=== PATIENT | male | born 1990 | race Caucasian/White ===

== ENCOUNTER 2017-01-02 21:20 | Emergency (ER) | payer OTHER ==
--- NOTE | 2017-01-03 08:57 | ED CLINICAL REPORT ---
Clinical Report - Physicians/Mid Levels [facility] [address] [place] [address] 01/02/2017 21:22 Patient: SAHRYN CAO Time Seen: 22:34. Arrived- By private vehicle. Historian- patient. History limited by intoxication. Physical Exam limited by intoxication. HISTORY OF PRESENT ILLNESS Chief Complaint: DEPRESSED and SUICIDAL THOUGHTS. This started today. The patient has experienced situational problems (his mother wants him to move out). Recent heavy alcohol consumption. Last drink was just prior to arrival. He is under influence in ED. Has been depressed. Has had suicidal thoughts (he tells nursing staff that he tried to hang himself today). The symptoms are described as severe. An injury is present. Location- (L ear). Similar symptoms previously: Diagnosis: depression, self injury and suicide attempt. ( he says that he is homosexual and when he "came out" he was very depressed and suicidal). REVIEW OF SYSTEMS No chills, fever, sweats, calf pain or chest pain. No cough, difficulty breathing, pedal edema, palpitations or abdominal pain. No constipation, diarrhea, nausea, vomiting or urinary problems. All systems otherwise negative, except as recorded above. SOCIAL HISTORY Regular alcohol use. History of drug use he told nursing staff that he wanted to go out and get some meth to kill himself with. FAMILY HISTORY Denies family medical history. ADDITIONAL NOTES The nursing notes have been reviewed. PHYSICAL EXAM Vital Signs: 01/02/2017 21:42 BP: 144/110. HR: 112. RR: 16. O2 saturation: 99%. Temp: 99 F. Pain level now: 710. Have been reviewed. Appearance: The patient appears intoxicated and has ETOH on breath. ENT: Left ear: deep 1.0 cm through and through laceration involving the cartilage of the posterior and peripheral aspect of the left ear. SEE LACERATION PROCEDURE NOTE #1. Neck: Normal inspection. Neck supple. CVS: Normal heart rate and rhythm. Heart sounds normal. Respiratory: Breath sounds normal. Abdomen: Soft and nontender. Back: No tenderness. Skin: Skin warm and dry. Signs of self-injury to the right forearm (scars). Extremities: Extremities exhibit normal ROM. No lower extremity edema. Psych / Neuro: The patient expresses suicidal thoughts and a specific plan. Patient does not express homicidal thoughts. Insight and judgement normal. Cranial nerves normal (as tested). No cerebellar findings. No motor deficit. No sensory deficit. LABS, X-RAYS, AND EKG Laboratory Tests: UA-Culture if indicated: (MARYCRUZ: 01/02/2017 23:10) ( [facility] 01/02/2017 23:33) Final results Test Result Flag Units (Reference) URINE COLOR YELLOW URINE APPEARANCE CLEAR URINE GLUCOSE NEGATIVE (NEGATIVE) URINE BILIRUBIN NEGATIVE (NEGATIVE) URINE KETONE NEGATIVE (NEGATIVE) URINE SPECIFIC GRAVITY 1.010 (1.010-1.030) URINE PH 7.5 (5.0-8.0) URINE PROTEIN NEGATIVE (NEGATIVE) URINE UROBILINOGEN 0.2 EU/dL (0.2-1.0) URINE NITRITE NEGATIVE (NEGATIVE) URINE BLOOD NEGATIVE (NEGATIVE) URINE LEUK ESTERASE NEGATIVE (NEGATIVE) URINE RBC 0-1 rbc/hpf (0-1) URINE WBC 0-1 wbc/hpf (0-1) URINE EPITHELIAL CELLS 0-1 EPI/hpf (0-5) URINE BACTERIA NONE SEEN (NONE SEEN) URINE COMMENT CULT NOT INDICATED URINE CULTURES ARE SET-UP BASED ON THE FOLLOWING CRITERIA:POSITIVE NITRITEPOSITIVE LEUKOCYTE ESTERASEGREATER THAN 10 WHITE BLOOD CELLSMODERATE (2+) OR GREATER BACTERIA CBC w Diff: (MARYCRUZ: 01/02/2017 22:15) ( [facility] 01/02/2017 22:25) Final results Test Result Flag Units (Reference) WHITE BLOOD COUNT 10.1 K/uL (4.5-11.5) RED BLOOD COUNT 5.20 M/uL (4.50-5.90) HEMOGLOBIN 15.0 gm/dL (13.5-17.5) HEMATOCRIT 45.0 % (41.0-53.0) MEAN CELL VOLUME 87 fL (80-100) MEAN CORPUSCULAR HGB 29 pg (26-34) MEAN CORPUSCULAR HGB CONC 33 g/dL (31-37) RED CELL DISTRIBUTION WIDTH 14.0 % (11.6-14.8) PLATELET COUNT 244 K/uL (150-400) NEUTROPHIL % 61.0 % (50-75) LYMPH % 34.2 % (25-40) MONO % 3.9 % (3-14) EOSINOPHIL % 0.3 % (0-4) BASOPHIL % 0.6 % (0-2) Urine Drug Screen: (MARYCRUZ: 01/02/2017 23:10) ( [facility] 01/02/2017 23:41) Final results Test Result Flag Units (Reference) AMPHETAMINE/METHAMPHETAMINE NEGATIVE (NEGATIVE) BARBITURATE NEGATIVE (NEGATIVE) BENZODIAZEPINE NEGATIVE (NEGATIVE) CANNABINOID NEGATIVE (NEGATIVE) COCAINE NEGATIVE (NEGATIVE) ECSTASY NEGATIVE (NEGATIVE) METHADONE NEGATIVE (NEGATIVE) OPIATE NEGATIVE (NEGATIVE) The urine drug screen is a qualitative screening test fordrug overdose and abuse. All screen results should beconsidered as presumptive.Drugs screened for are as follows:BenzodiazepinesCocaineAmphetamines/MetamphetaminesTHC (Tetrahydrocannabinol)OpiatesBarbituratesEcstasyMethadonePositive results are unconfirmed. For confirmation, notifythe lab for the specimen to be sent to the reference lab.All confirmations must be performed by a differentmethodology.The ingestion of natural herbal and plant productscontaining Ephedra/Ephedra metabolites can produce in urineone or more substances capable of cross reacting withamphetamine/methamphetamine immunoassays. These testsprovide a preliminary result only. A more specificalternative chemical method must be used to obtain aconfirmed analytical result. Salicylate Level: (MARYCRUZ: 01/02/2017 22:15) ( [facility] 01/02/2017 22:37) Final results Test Result Flag Units (Reference) SALICYLATE <2.8 L mg/dL (2.8-20) CMP: (MARYCRUZ: 01/02/2017 22:15) ( [facility] 01/02/2017 22:45) Final results Test Result Flag Units (Reference) GLUCOSE 104 mg/dL (70-110) BUN 10 mg/dL (7-18) CREATININE 0.8 mg/dL (0.6-1.3) Estimated GFR >60 mL/min Estimated GFR- >60 mL/min Note: Persistent reduction over 3 months in eGFR<60 mL/min/1.73 m2 defines CKD. Patients with eGFR values>=60 mL/min/1.73 m2 may also have CKD if evidence ofpersistent proteinuria. Additional information may be foundat www.kidney.org. SODIUM 147 H mmol/L (136-145) POTASSIUM 4.0 mmol/L (3.5-5.1) CHLORIDE 109 H mmol/L (98-107) CARBON DIOXIDE 28 mmol/L (21-32) CALCIUM 8.7 mg/dL (8.5-10.1) TOTAL PROTEIN 8.0 g/dL (6.4-8.2) ALBUMIN 4.3 g/dL (3.3-5.0) BILIRUBIN, TOTAL 0.2 mg/dL (0.0-1.0) ALKALINE PHOSPHATASE 74 U/L (46-116) AST (SGOT) 19 U/L (15-37) ALT (SGPT) 26 U/L (12-78) ACETAMINOPHEN < 3 L ug/mL (10-30) ETHYL ALCOHOL 315 H mg/dL (3-10) . PROGRESS AND PROCEDURES Suicide Risk Assessment: The patient's suicide risk factors are as follows: male and recent alcohol abuse. The patient has a diagnosis of substance abuse. Clinical suicide risk assessment: moderate risk. Laceration Repair: Location: left ear. Time-out completed immediately before the procedure. Length: 1 cm. Complexity: complex (requiring alignment of multiple flaps). Wound depth/shape- linear. Distal neuro/vascular/tendon status normal. Local anesthesia provided using 2% lidocaine no epi. Prepped with Betadine. Wound explored, cleansed and examined to the base in bloodless field. Closure of superficial layer: interrupted 5-0 Prolene (6 sutures). Post-procedure: he is stable and there are no complications. Bleeding is controlled. Dressing applied. Tetanus immunization given. Course of Care: Patient is stable. The patient's symptoms are now gone. Vital signs have been reviewed. Physical exam findings are improved. Alert. Oriented X3. No acute distress. Breath sounds normal. No respiratory distress. Normal heart rate and rhythm. Heart sounds normal. Abdomen soft and nontender. Skin warm and dry. ( Had an extended discussion with the patient in the morning when he was sober. Etiologies that he has had problems with alcohol and has been in both inpatient and outpatient alcohol programs including Alcoholics Anonymous. He remembers taking a bus into town and buying a bottle of vodka but he does not recall what happened after that. He says that he is not suicidal he has a good job and wishes to go home.). Patient/family counseled. Old medical records reviewed. Disposition: Discharged. Condition: stable. CLINICAL IMPRESSION Depression. Single deep laceration to the left ear. Alcohol intoxication with alcohol dependence. INSTRUCTIONS Stay with responsible adult family member (or other responsible adult). No alcohol. Seek medical help to quit drinking. (Return to Alcoholics Anonymous for further support and help as discussed.). Warnings: Further evaluation is necessary. GENERAL WARNINGS: Return or contact your physician immediately if your condition worsens or changes unexpectedly, if not improving as expected, or if other problems arise. Prescription Medications: Augmentin 875 mg: take 1 tablet orally every 12 hours for 7 days. Dispense fourteen (14). No refills. Substitution is permissible. Understanding of the discharge instructions verbalized by patient. Follow-up with: [facility], , , [address], , [place], [id number] Follow up in seven days for suture removal. Call for an appointment. Follow-up with: [facility] Valve Machine Operator, , , , , Follow up today. Call for the next available appointment. (Electronically signed by Chuy Gupta MD 01/03/2017 9:28)
--- NOTE | 2017-01-03 08:57 | ED ORDER SUMMARY ---
..... Patient: SHARYN CAO OrderSheet [facility] VisitID: [id number] [address] [place] [address] 26y, M Registration Date/Time: 01/02/2017 ORDER SHEET Weight: 68.0 kg Allergies: Demerol GENERAL ORDERS: CBC w Diff Urgent (22:00 01/02/2017 TBowen R.N. per protocol) (Ack 22:17 SRedmond) (0:10 SRedmond) CMP Urgent (22:00 01/02/2017 TBowen R.N. per protocol) (Ack 22:17 SRedmond) (0:10 SRedmond) UA-Culture if indicated Urgent (:00 01/02/2017 TBowen R.N. per protocol) (Ack 22:17 SRedmond) (23:15 TBowen R.N.) Acetaminophen Level Urgent (:00 01/02/2017 TBowen R.N. per protocol) (Ack 22:17 SRedmond) (0:10 SRedmond) Urine Drug Screen Urgent (22:00 01/02/2017 TBowen R.N. per protocol) (Ack 22:17 SRedmond) (23:15 TBowen R.N.) Ethyl Alcohol Urgent (22:00 01/02/2017 TBowen R.N. per protocol) (Ack 22:17 SRedmond) (0:10 SRedmond) Salicylate Level Urgent (22:00 01/02/2017 TBowen R.N. 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 (13:32 01/03/2017)] [Electronically locked/signed by Aicha Gilbert R.N. (13:32 01/03/2017)]
--- NOTE | 2017-01-03 08:57 | ED ORDER SUMMARY ---
..... Patient: SHARYN CAO OrderSheet [facility] VisitID: [id number] [address] [place] [address] 26y, M Registration Date/Time: 01/02/2017 ORDER SHEET Weight: 68.0 kg Allergies: Demerol GENERAL ORDERS: CBC w Diff Urgent (22:00 01/02/2017 TBowen R.N. per protocol) (Ack 22:17 SRedmond) (0:10 SRedmond) CMP Urgent (22:00 01/02/2017 TBowen R.N. per protocol) (Ack 22:17 SRedmond) (0:10 SRedmond) UA-Culture if indicated Urgent (:00 01/02/2017 TBowen R.N. per protocol) (Ack 22:17 SRedmond) (23:15 TBowen R.N.) Acetaminophen Level Urgent (:00 01/02/2017 TBowen R.N. per protocol) (Ack 22:17 SRedmond) (0:10 SRedmond) Urine Drug Screen Urgent (22:00 01/02/2017 TBowen R.N. per protocol) (Ack 22:17 SRedmond) (23:15 TBowen R.N.) Ethyl Alcohol Urgent (22:00 01/02/2017 TBowen R.N. per protocol) (Ack 22:17 SRedmond) (0:10 SRedmond) Salicylate Level Urgent (22:00 01/02/2017 TBowen R.N. 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 (13:32 01/03/2017)] [Electronically locked/signed by Aicha Gilbert R.N. (13:32 01/03/2017)]
--- NOTE | 2017-01-03 08:57 | ED CLINICAL REPORT ---
Clinical Report - Physicians/Mid Levels [facility] [address] [place] [address] 01/02/2017 21:22 Patient: SHARYN CAO Time Seen: 22:34. Arrived- By private vehicle. Historian- patient. History limited by intoxication. Physical Exam limited by intoxication. HISTORY OF PRESENT ILLNESS Chief Complaint: DEPRESSED and SUICIDAL THOUGHTS. This started today. The patient has experienced situational problems (his mother wants him to move out). Recent heavy alcohol consumption. Last drink was just prior to arrival. He is under influence in ED. Has been depressed. Has had suicidal thoughts (he tells nursing staff that he tried to hang himself today). The symptoms are described as severe. An injury is present. Location- (L ear). Similar symptoms previously: Diagnosis: depression, self injury and suicide attempt. ( he says that he is homosexual and when he "came out" he was very depressed and suicidal). REVIEW OF SYSTEMS No chills, fever, sweats, calf pain or chest pain. No cough, difficulty breathing, pedal edema, palpitations or abdominal pain. No constipation, diarrhea, nausea, vomiting or urinary problems. All systems otherwise negative, except as recorded above. SOCIAL HISTORY Regular alcohol use. History of drug use he told nursing staff that he wanted to go out and get some meth to kill himself with. FAMILY HISTORY Denies family medical history. ADDITIONAL NOTES The nursing notes have been reviewed. PHYSICAL EXAM Vital Signs: 01/02/2017 21:42 BP: 144/110. HR: 112. RR: 16. O2 saturation: 99%. Temp: 99 F. Pain level now: 710. Have been reviewed. Appearance: The patient appears intoxicated and has ETOH on breath. ENT: Left ear: deep 1.0 cm through and through laceration involving the cartilage of the posterior and peripheral aspect of the left ear. SEE LACERATION PROCEDURE NOTE #1. Neck: Normal inspection. Neck supple. CVS: Normal heart rate and rhythm. Heart sounds normal. Respiratory: Breath sounds normal. Abdomen: Soft and nontender. Back: No tenderness. Skin: Skin warm and dry. Signs of self-injury to the right forearm (scars). Extremities: Extremities exhibit normal ROM. No lower extremity edema. Psych / Neuro: The patient expresses suicidal thoughts and a specific plan. Patient does not express homicidal thoughts. Insight and judgement normal. Cranial nerves normal (as tested). No cerebellar findings. No motor deficit. No sensory deficit. LABS, X-RAYS, AND EKG Laboratory Tests: UA-Culture if indicated: (MARYCRUZ: 01/02/2017 23:10) ( [facility] 01/02/2017 23:33) Final results Test Result Flag Units (Reference) URINE COLOR YELLOW URINE APPEARANCE CLEAR URINE GLUCOSE NEGATIVE (NEGATIVE) URINE BILIRUBIN NEGATIVE (NEGATIVE) URINE KETONE NEGATIVE (NEGATIVE) URINE SPECIFIC GRAVITY 1.010 (1.010-1.030) URINE PH 7.5 (5.0-8.0) URINE PROTEIN NEGATIVE (NEGATIVE) URINE UROBILINOGEN 0.2 EU/dL (0.2-1.0) URINE NITRITE NEGATIVE (NEGATIVE) URINE BLOOD NEGATIVE (NEGATIVE) URINE LEUK ESTERASE NEGATIVE (NEGATIVE) URINE RBC 0-1 rbc/hpf (0-1) URINE WBC 0-1 wbc/hpf (0-1) URINE EPITHELIAL CELLS 0-1 EPI/hpf (0-5) URINE BACTERIA NONE SEEN (NONE SEEN) URINE COMMENT CULT NOT INDICATED URINE CULTURES ARE SET-UP BASED ON THE FOLLOWING CRITERIA:POSITIVE NITRITEPOSITIVE LEUKOCYTE ESTERASEGREATER THAN 10 WHITE BLOOD CELLSMODERATE (2+) OR GREATER BACTERIA CBC w Diff: (MARYCRUZ: 01/02/2017 22:15) ( [facility] 01/02/2017 22:25) Final results Test Result Flag Units (Reference) WHITE BLOOD COUNT 10.1 K/uL (4.5-11.5) RED BLOOD COUNT 5.20 M/uL (4.50-5.90) HEMOGLOBIN 15.0 gm/dL (13.5-17.5) HEMATOCRIT 45.0 % (41.0-53.0) MEAN CELL VOLUME 87 fL (80-100) MEAN CORPUSCULAR HGB 29 pg (26-34) MEAN CORPUSCULAR HGB CONC 33 g/dL (31-37) RED CELL DISTRIBUTION WIDTH 14.0 % (11.6-14.8) PLATELET COUNT 244 K/uL (150-400) NEUTROPHIL % 61.0 % (50-75) LYMPH % 34.2 % (25-40) MONO % 3.9 % (3-14) EOSINOPHIL % 0.3 % (0-4) BASOPHIL % 0.6 % (0-2) Urine Drug Screen: (MARYCRUZ: 01/02/2017 23:10) ( [facility] 01/02/2017 23:41) Final results Test Result Flag Units (Reference) AMPHETAMINE/METHAMPHETAMINE NEGATIVE (NEGATIVE) BARBITURATE NEGATIVE (NEGATIVE) BENZODIAZEPINE NEGATIVE (NEGATIVE) CANNABINOID NEGATIVE (NEGATIVE) COCAINE NEGATIVE (NEGATIVE) ECSTASY NEGATIVE (NEGATIVE) METHADONE NEGATIVE (NEGATIVE) OPIATE NEGATIVE (NEGATIVE) The urine drug screen is a qualitative screening test fordrug overdose and abuse. All screen results should beconsidered as presumptive.Drugs screened for are as follows:BenzodiazepinesCocaineAmphetamines/MetamphetaminesTHC (Tetrahydrocannabinol)OpiatesBarbituratesEcstasyMethadonePositive results are unconfirmed. For confirmation, notifythe lab for the specimen to be sent to the reference lab.All confirmations must be performed by a differentmethodology.The ingestion of natural herbal and plant productscontaining Ephedra/Ephedra metabolites can produce in urineone or more substances capable of cross reacting withamphetamine/methamphetamine immunoassays. These testsprovide a preliminary result only. A more specificalternative chemical method must be used to obtain aconfirmed analytical result. Salicylate Level: (MARYCRUZ: 01/02/2017 22:15) ( [facility] 01/02/2017 22:37) Final results Test Result Flag Units (Reference) SALICYLATE <2.8 L mg/dL (2.8-20) CMP: (MARYCRUZ: 01/02/2017 22:15) ( [facility] 01/02/2017 22:45) Final results Test Result Flag Units (Reference) GLUCOSE 104 mg/dL (70-110) BUN 10 mg/dL (7-18) CREATININE 0.8 mg/dL (0.6-1.3) Estimated GFR >60 mL/min Estimated GFR- >60 mL/min Note: Persistent reduction over 3 months in eGFR<60 mL/min/1.73 m2 defines CKD. Patients with eGFR values>=60 mL/min/1.73 m2 may also have CKD if evidence ofpersistent proteinuria. Additional information may be foundat www.kidney.org. SODIUM 147 H mmol/L (136-145) POTASSIUM 4.0 mmol/L (3.5-5.1) CHLORIDE 109 H mmol/L (98-107) CARBON DIOXIDE 28 mmol/L (21-32) CALCIUM 8.7 mg/dL (8.5-10.1) TOTAL PROTEIN 8.0 g/dL (6.4-8.2) ALBUMIN 4.3 g/dL (3.3-5.0) BILIRUBIN, TOTAL 0.2 mg/dL (0.0-1.0) ALKALINE PHOSPHATASE 74 U/L (46-116) AST (SGOT) 19 U/L (15-37) ALT (SGPT) 26 U/L (12-78) ACETAMINOPHEN < 3 L ug/mL (10-30) ETHYL ALCOHOL 315 H mg/dL (3-10) . PROGRESS AND PROCEDURES Suicide Risk Assessment: The patient's suicide risk factors are as follows: male and recent alcohol abuse. The patient has a diagnosis of substance abuse. Clinical suicide risk assessment: moderate risk. Laceration Repair: Location: left ear. Time-out completed immediately before the procedure. Length: 1 cm. Complexity: complex (requiring alignment of multiple flaps). Wound depth/shape- linear. Distal neuro/vascular/tendon status normal. Local anesthesia provided using 2% lidocaine no epi. Prepped with Betadine. Wound explored, cleansed and examined to the base in bloodless field. Closure of superficial layer: interrupted 5-0 Prolene (6 sutures). Post-procedure: he is stable and there are no complications. Bleeding is controlled. Dressing applied. Tetanus immunization given. Course of Care: Patient is stable. The patient's symptoms are now gone. Vital signs have been reviewed. Physical exam findings are improved. Alert. Oriented X3. No acute distress. Breath sounds normal. No respiratory distress. Normal heart rate and rhythm. Heart sounds normal. Abdomen soft and nontender. Skin warm and dry. ( Had an extended discussion with the patient in the morning when he was sober. Etiologies that he has had problems with alcohol and has been in both inpatient and outpatient alcohol programs including Alcoholics Anonymous. He remembers taking a bus into town and buying a bottle of vodka but he does not recall what happened after that. He says that he is not suicidal he has a good job and wishes to go home.). Patient/family counseled. Old medical records reviewed. Disposition: Discharged. Condition: stable. CLINICAL IMPRESSION Depression. Single deep laceration to the left ear. Alcohol intoxication with alcohol dependence. INSTRUCTIONS Stay with responsible adult family member (or other responsible adult). No alcohol. Seek medical help to quit drinking. (Return to Alcoholics Anonymous for further support and help as discussed.). Warnings: Further evaluation is necessary. GENERAL WARNINGS: Return or contact your physician immediately if your condition worsens or changes unexpectedly, if not improving as expected, or if other problems arise. Prescription Medications: Augmentin 875 mg: take 1 tablet orally every 12 hours for 7 days. Dispense fourteen (14). No refills. Substitution is permissible. Understanding of the discharge instructions verbalized by patient. Follow-up with: [facility], , , [address], , [place], [id number] Follow up in seven days for suture removal. Call for an appointment. Follow-up with: [facility] Certified Mental Health Director Of Speech Pathology, , , , , Follow up today. Call for the next available appointment. (Electronically signed by Chuy Gupta MD 01/03/2017 9:28)
--- NOTE | 2017-01-03 08:57 | ED NURSING NOTES ---
Clinical Report - Nurses [facility] [address] [place] [address] 01/02/2017 21:22 Patient: SHARYN CAO TRIAGE Triage time 21:42. Acuity: LEVEL 4. Chief Complaint: INJURY TO LEFT EAR. --21:46 Emigdio Souza 21:42 01/02/17. BP: 144/110. HR: 112. RR: 16. O2 saturation: 99%. Temp: 99 F. Pain level now: 03/24. --21:46 Emigdio Souza Weight: 68 kg. Height/Length: 70 inches. BMI: 21.5. --21:45 Emigdio Souza Medications Adderall Oral. --21:43 Emigdio Souza Abilify Oral (Tablet 5 mg) 1 tablet, daily. --21:43 Angeline Tovar R.N. TraZODone HCl Oral (Tablet 50 mg) 1 tablet, at bedtime. --00:48 Angeline Tovar R.N. BuPROPion HCl Oral (Tablet 100 mg) 2 tablets, daily. --00:49 Angeline Tovar R.N. Trazosine 1mg, daily. --00:50 Angeline Tovar R.N. ARIPiprazole Oral (Tablet 5 mg) 1 tablet, daily. --00:55 Angeline Tovar R.N. The following entry was struck and corrected by Angeline Tovar R.N., 00:52 (01/03/17) Reason for correction - other(correction). <<STRICKEN ENTRY-- Abilify Oral. --21:43 Emigdio Souza --END STRIKE>>. Allergies Demerol. --21:43 Emigdio Souza History Arrived by private vehicle. Historian: patient. Accompanied by family. This occurred just prior to arrival. He sustained a laceration. ( pt fell in his room and unsure what he hit). 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 PAST MEDICAL HX: Tetanus status: up-to-date. Immunizations: up-to-date. SOCIAL HX: Smoker- current status unknown. Regular alcohol use. No drug use. No infectious disease exposure. SELF HARM ASSESSMENT: A self harm assessment was performed. The patient answered "no" to the question "Have you recently felt down, depressed, or hopeless?", "Have you noticed less interest or pleasure in doing things?", "Do you have thoughts of harming or killing yourself?", "Are you here because you tried to hurt yourself?", "Have you ever tried to hurt yourself before today?", "Have you recently had thoughts about harming or killing others?" and "Do you have any dangerous items in your possession?". FALL RISK ASSESSMENT: Fall risk assessment completed. No fall risk identified. NUTRITIONAL RISK ASSESSMENT: The nutritional risk assessment revealed no deficiencies. FUNCTIONAL ASSESSMENT: Functional assessment: no impairments noted. LEARNING NEEDS ASSESSMENT: The learning needs assessment revealed no barriers. SKIN INTEGRITY ASSESSMENT: Skin integrity risk assessment completed. No skin integrity risk identified. --21:46 Harley R.Sandra. PROBLEMS: Lifestyle / Substance Problems. Laceration. Dental Trauma. Fall. Last Tetanus. Tetanus Status. Alcohol Intoxication. Cellulitis. Contusion. ADHD - Attention Deficit Hyperactivity Disorder. Immunizations. ADD - Attention Deficit Disorder. Scabies. --21:44 Jaxson Souza. Molluscum Contagiosum [RuleOut]. --21:44 Jaxson Souza. ADDITIONAL SURGERIES: Facial reconstruction. Jaw surgery. --21:44 Jaxson Souza. Interventions ID band on patient. To treatment room. --21:46 Moriah SouzaN. PHYSICAL ASSESSMENT Ambulatory to room. GENERAL / NEURO / PSYCH: Alert. Oriented X 4. Appears in no acute distress. HEENT: Head non-tender. Pupils equal, round and reactive to light. EOM intact. Left ear: swelling and deep laceration (through and through) of the central aspect of the left ear. Mouth within normal limits upon inspection. Voice within normal limits. No swelling of head. No nasal injury noted. No dental injury noted. Mucous membranes are pink. RESPIRATORY: Respirations not labored. CVS: Capillary refill less than 2 seconds. BACK: ROM normal to the neck and back. SKIN: Skin is warm and dry. --22:24 Emigdio Souza NURSING PROGRESS NOTES ( pt just informed me that he tried to kill himself). --21:51 Emigdio Souza ( pt states that he tried to hang himself today and that is how he ended up falling and cutting his ear, pt states that he woke up with his family standing over him and he was bleeding,, pt states he does not remember the fall). --22:25 Jaxson Souza. Patient identifiers checked. Call light placed in reach. Bed placed in lowest position. Brakes of bed on. --22:25 Emigdio Souza ( pt is very tearful at this time, pt refuses to put on the yellow gown at this time). --23:15 Emigdio Souza 23:40- Pts mother at bedside (pt refused to tell mom about suicide attemt or suicidal ideation), Mom very upset and wanting to take pt to another hospital. Pt encouraged to tell mom the whole story or mom will be asked to leave the ED. Pt tearfully agrees and informs mom of suicide atttempt. Pt and mother informed that pt needs to stay for [facility] evaluation, for pt safety. Patient and mom agree at this time. --23:49 Angeline Tovar R.N. ( pt did allow me to take his shirt, jacket and silver necklace, pt asked to keep his shorts on at this time, I allowed pt to keep them, warm blanket given to pt and pt has gown across his lap.). --00:05 Emigdio Souza late entry - 23:20. ( pt states that he has tried to kill himself in the past and that if he went home tonight he could not say that he wouldn't try to hurt himself again tonight.). --00:07 Emigdio Souza ( Sister, Meredith, calls to get update on pt. Pt gives verbal consent to discuss case with sisterJuan Harper updated on course of events thus far as well as plan of care. Meredith states pt has "long phych history with a suicide attempt in September 2013"). --00:15 Angeline Tovar R.N. extensive conversation with patients motherPatricia. Patricia believes primary nurse, Tricia, pt from mother and "planted the story of suicide attempt in his head" to "cause drama for him". Pt's mother was informed that I also spoke to pt to verify that he did not want his mother to come back to the ED upon his placement in rm 16. Pt verbalized at that time that he did not want her back nor did he want her to know what he had said about the attempted hanging. Mom reports that pt was in the bathroom when he "fell" and reports there was not a rope or anything to hang himself with. Mom very upset and believes son is not suicidal. Explained again to mom that pt did say the words "I tried to hang myself and will do it again if I go home" to the RN so, for his safety, we have to have him asssesed by [facility]. Mom updates pt's med list and asks for a different RN to care for her son. Mom informed that there are 3 nurses working though the night and we will all be part of his care team. --00:47 Angeline Tovar R.N. ( Mother- Patricia- [phone] Sister- Meredith- [phone]). --00:56 Angeline Tovar R.N. 01:13 01/03/2017 LIDOCAINE BUFFERED Injection Injectable 2 % given. (on laceration cart for MD). --01:39 Cecilio Coello, ER Credit Card Interviewer ( pt resting in bed, no distress noted at this time, resp are even and unlabored). --01:52 Emigdio Souza BREATHALYZER: Breathalyzer ([id number]). --03:27 Emigdio Souza WOUND REPAIR: Wound repair performed by ED physician. Assisted by one nurse and tech. The wound is located on the left ear. The wound is clean and linear. Preparation: suture tray set-up with 2% lidocaine. Wound cleansed per physician with Betadine. Procedure: wound repaired with sutures (6 sutures). Post-procedure: he was stable, no complications, bleeding controlled and dressing applied. Total time of assist / procedure: 30 minutes. --03:44 Cecilio Coello, ER Credit Card Interviewer 04:16 01/03/17. BP: 119/80. HR: 71. RR: 16. O2 saturation: 99%. Temp: deferred. Pain level now: 0/10. --04:17 Emigdio Souza ( sandwich and snack provided to the pt with soda, pt is calm and cooperative at this time). --04:18 Emigdio Souza ( pt resting in bed, no distress noted, resp are even and unlabored, pt appears to be sleeping at this time). --05:00 Emigdio Souza ( pt resting in bed, no distress noted,). --06:21 Emigdio Souza BREATHALYZER: Breathalyzer (.[phone]). --06:39 Emigdio Souza 07:30 01/03/17. ( Patient's sister at bedside.). --07:30 Aicha Gilbert R.N. 07:29 01/03/17. BP: 123/92. HR: 80. RR: 16. O2 saturation: 99%. Temp: deferred. Pain level now: 4/10. --07:30 Aicha Gilbert R.N. 07:05. Care transferred and report received (from Tricia ALEXANDER). --07:37 Aicha Gilbert R.N. 08:00 01/03/17. ( breathalyzer result 0.042). --08:00 Aicha Gilbert R.N. 08:30. ( PAT team called. PAT team unavailable until 22:00 tonight. Patient was asked if he would be willing to go to [facility] for evaluation if we could obtain a bed for him. Patient stated, "No, I really don't know what happened last night. I'm fine now and I just want to go home." Patient denies wanting to harm himself. Dr Gupta notified.). --09:01 Ofelia, Aicha, R.N. DISPOSITION / DISCHARGE 09:01/03/17. Condition at departure: stable. No learning barriers present. Discharge instructions provided and reviewed with the patient. Reviewed medication(s). Treatments reviewed. Reviewed referrals. Activity restrictions reviewed. Note given. Patient verbalized understanding. Written instructions provided in Com[place]an. ( Patient states he needs to become more involved with AA. Patient states "I feel like I need alcohol to have fun so I drink, but then it puts me in a bad place mentally. I feel much better now." Patient agreed to call mental health referral today.). The patient was discharged by the physician. He was discharged home and accompanied by sister. He left the Emergency Department ambulatory and via private vehicle. Driving (sister). --09:23 Aicha Gilbert R.N. 09:20 01/03/17. BP: 135/90 (regular adult cuff) taken on the left arm, while sitting. HR: 88. RR: 15 (unlabored). O2 saturation: 98% on room air. Temp: deferred. Pain level now: 12/23. --09:23 Aicha Gilbert R.N. Locked/Released at 01/03/2017 13:32 by Aicha Gilbert R.N.
--- NOTE | 2017-01-03 13:32 | ED MAR SUMMARY ---
..... Medication Administration Record [facility] [address] [place] [address] Patient: SHARYN CAO Visit ID: [id number] 26y, M Weight: 68.0 kg Height/Length: 70 in BMI: 21.5 ALLERGIES: Demerol Given 01:13 01/03/2017 Cecilio Coello, KAMINI Shirt Turner Medication Administered: LIDOCAINE BUFFERED [INJECTION], Dose: 2 % Injectable Injection. Medication Ordered: Lidocaine Injection Buffered 2 % (soln) (place at bedside, with syringes & needles).
--- NOTE | 2017-01-03 13:32 | ED MED RECONCILIATION SUMMARY ---
Patient: SHARYN CAO Medication Reconciliation Report [facility] VisitID: [id number] [address] [place] [address] 26y, M Registration Date/Time: 01/02/2017 Weight: 68.0 kg Height/Length: 70 in. BMI: 21.5 ALLERGIES: Demerol The patient's Home Medications are listed below: THE FOLLOWING MEDICATIONS NEED TO BE RECONCILED: Abilify Oral (5 mg) 1 tablet, daily Adderall Oral ARIPiprazole Oral (5 mg) 1 tablet, daily BuPROPion HCl Oral (100 mg) 2 tablets, daily TraZODone HCl Oral (50 mg) 1 tablet, at bedtime Trazosine 1mg, daily The source(s) of the original Home Medication information: Not obtained. The following Medications were given to the patient in the Emergency Department: LIDOCAINE BUFFERED [INJECTION] Injection 2 %, administered: 01/03/2017 1:13:00 AM The following Medications were prescribed to the patient: Augmentin 875 mg: take 1 tablet orally every 12 hours for 7 days. Dispense fourteen (14). No refills. Substitution is permissible. -- Chuy Gupta MD
--- NOTE | 2017-01-03 13:32 | ED DISCHARGE INSTRUCTIONS ---
Patient: SHARYN CAO General Instructions [facility] VisitID: [id number] [address] [place] [address] 26y, M Registration Date/Time: 01/02/2017 Depression. Single deep laceration to the left ear. Alcohol intoxication with alcohol dependence. INSTRUCTIONS Stay with responsible adult family member (or other responsible adult). No alcohol. Seek medical help to quit drinking. (Return to Alcoholics Anonymous for further support and help as discussed.). Warnings: Further evaluation is necessary. GENERAL WARNINGS: Return or contact your physician immediately if your condition worsens or changes unexpectedly, if not improving as expected, or if other problems arise. Prescription Medications: Augmentin 875 mg: take 1 tablet orally every 12 hours for 7 days. Dispense fourteen (14). No refills. Substitution is permissible. Understanding of the discharge instructions verbalized by patient. Follow-up with: [facility], , , [address], , [place], [address] Follow up in seven days for suture removal. Call for an appointment. Follow-up with: [facility], Certified Mental Health Chief Relay Tester, , , , , Follow up today. Call for the next available appointment. ADDITIONAL INFORMATION Depression Depression is one of the most common mental health problems today. It is not just a state of unhappiness or sadness. It is a true disease. The cause seems to be related to a decrease in chemicals that transmit signals in the brain. Having a family history of depression, alcoholism or suicide increases the risk. Chronic illness, chronic pain, migraine headaches and high emotional stress also increase the risk. Depression can cause many different symptoms, such as: -- Loss of appetite -- Over-eating -- Not being able to sleep -- Sleeping too much -- Tiredness not related to physical exertion -- Restlessness or irritability -- Slowness of movement or speech -- Feeling depressed or withdrawn -- Loss of interest in things you once enjoyed -- Difficulty in concentrating, poor memory, have trouble making decisions -- Thoughts of harming or killing oneself, or thoughts that life is not worth living -- Low self-esteem The best treatment for depression is a combination of medicine and psychotherapy. Antidepressant medicines can reduce suffering and can improve the ability to function during the depressed period. Therapy can offer emotional support and help you understand emotional factors that may be causing the depression. Home Care: 1) Be kind to yourself. Make it a point to do things that you enjoy (gardening, walking in nature, going to a movie, etc.). Reward yourself for small successes. 2) Take care of your physical body. Eat a balanced diet (low in saturated fat and high in fruits and vegetables). Establish an exercise plan at least 3 times a week for 30 minutes. Even mild-moderate exercise (like brisk walking) can make you feel better. 3) Avoid alcohol, which can make depression worse. Follow-Up with your doctor as advised. It is important to keep in contact with a health care provider until your symptoms begin to improve. Get Prompt Medical Attention if any of the following occur: -- Feeling extreme depression, fear, anxiety, or anger toward yourself or others -- Feeling out of control -- Feeling that you may try to harm yourself or another -- Hearing voices that others do not hear -- Seeing things that others do not see -- Cant sleep or eat for 3 days in a row Alcohol Intoxication Alcohol intoxication occurs when you drink alcohol faster than your liver can remove it from your system. Alcohol intoxication affects your judgment and coordination. Very high blood alcohol levels can cause coma, very slow breathing and even . If you drink alcohol every day, this may gradually cause permanent damage to your liver, brain, heart, pancreas and other organs. Alcohol use during may cause permanent damage to the growing baby. Home Care: Do not drink any more alcohol. DO NOT DRIVE until all effects of the alcohol have worn off. Get lots of rest over the next few days. Drink plenty of water and other non-alcoholic liquids. Try to eat regular meals. If you have been drinking heavily on a daily basis, you may go through alcohol withdrawl. This is also called the shakes or DTs. The usual symptoms last 3 to 4 days and may include nervousness, shakiness, nausea, sweating or sleeplessness. During this time, it is best that you stay with family or friends who can help and support you. You can also admit yourself to a residential detox program. If your symptoms are severe, contact your doctor for medicines to help. Follow Up: If alcohol is causing a problem in your life, these and other organizations can help you: Alcoholics Anonymous offers support through a self-help fellowship. There are no dues or fees. See the Yellow Pages and call for time and place of meetings. www.aa.org [employer] offers support to families of alcohol users. 713.158.2534 www.al-anon.org National [place] On Alcoholism And Drug Dependence 018-611-4254 www.ncadd.org There are also inpatient or residential alcohol detox programs. Check the Internet or phonebook Yellow Pages under Drug Abuse & Treatment Centers. Get Prompt Medical Attention if any of the following occur: there) Amoxicillin Trihydrate, Clavulanate Potassium Oral tablet What is this medicine? AMOXICILLIN; CLAVULANIC ACID (a mox i EDITH in; LUZ gaines ic id) is a penicillin antibiotic. It is used to treat certain kinds of bacterial infections. It will not work for colds, flu, or other viral infections. How should I use this medicine? Take this medicine by mouth with a full glass of water. Follow the directions on the prescription label. Take at the start of a meal. Do not crush or chew. If the tablet has a score line, you may cut it in half at the score line for easier swallowing. Take your medicine at regular intervals. Do not take your medicine more often than directed. Take all of your medicine as directed even if you think you are better. Do not skip doses or stop your medicine early. Talk to your health occupations instructor regarding the use of this medicine in children. Special care may be needed. What side effects may I notice from receiving this medicine? Side effects that you should report to your doctor or health home health aide caregiver as soon as possible: allergic reactions like skin rash, itching or hives, swelling of the face, lips, or tongue breathing problems dark urine fever or chills, sore throat redness, blistering, peeling or loosening of the skin, including inside the mouth seizures trouble passing urine or change in the amount of urine unusual bleeding, bruising unusually weak or tired white patches or sores in the mouth or throat Side effects that usually do not require medical attention (report to your doctor or health home health aide caregiver if they continue or are bothersome): diarrhea dizziness headache nausea, vomiting stomach upset vaginal or anal irritation What may interact with this medicine? allopurinol anticoagulants control pills methotrexate probenecid What if I miss a dose? If you miss a dose, take it as soon as you can. If it is almost time for your next dose, take only that dose. Do not take double or extra doses. Where should I keep my medicine? Keep out of the reach of children. Store at room temperature below 25 degrees C (77 degrees F). Keep container tightly closed. Throw away any unused medicine after the expiration date. What should I tell my health care provider before I take this medicine? They need to know if you have any of these conditions: bowel disease, like colitis kidney disease liver disease mononucleosis an unusual or allergic reaction to amoxicillin, penicillin, cephalosporin, other antibiotics, clavulanic acid, other medicines, foods, dyes, or preservatives or trying to get breast-feeding What should I watch for while using this medicine? Tell your doctor or health home health aide caregiver if your symptoms do not improve. Do not treat diarrhea with over the counter products. Contact your doctor if you have diarrhea that lasts more than 2 days or if it is severe and watery. If you have diabetes, you may get a false-positive result for sugar in your urine. Check with your doctor or health home health aide caregiver. control pills may not work properly while you are taking this medicine. Talk to your doctor about using an extra method of control. You have been given the following additional information: Depression Alcohol Intoxication Amoxicillin Trihydrate, Clavulanate Potassium Oral tablet Stay with responsible adult family member (or other responsible adult). (Electronically signed by Chuy Gupta MD 01/03/2017 9:28)
--- NOTE | 2017-01-03 13:32 | ED MAR SUMMARY ---
..... Medication Administration Record Merged With [facility] [address] [place] [address] Patient: SHARYN CAO Visit ID: [id number] 26y, M Weight: 68.0 kg Height/Length: 70 in BMI: 21.5 ALLERGIES: Demerol Given 01:13 01/03/2017 Cecilio Coello, KAMINI Counter Supervisor Medication Administered: LIDOCAINE BUFFERED [INJECTION], Dose: 2 % Injectable Injection. Medication Ordered: Lidocaine Injection Buffered 2 % (soln) (place at bedside, with syringes & needles).
--- NOTE | 2017-01-03 13:32 | ED DISCHARGE INSTRUCTIONS ---
Patient: SHARYN CAO General Instructions [facility] VisitID: [id number] [address] [place] [address] 26y, M Registration Date/Time: 01/02/2017 Depression. Single deep laceration to the left ear. Alcohol intoxication with alcohol dependence. INSTRUCTIONS Stay with responsible adult family member (or other responsible adult). No alcohol. Seek medical help to quit drinking. (Return to Alcoholics Anonymous for further support and help as discussed.). Warnings: Further evaluation is necessary. GENERAL WARNINGS: Return or contact your physician immediately if your condition worsens or changes unexpectedly, if not improving as expected, or if other problems arise. Prescription Medications: Augmentin 875 mg: take 1 tablet orally every 12 hours for 7 days. Dispense fourteen (14). No refills. Substitution is permissible. Understanding of the discharge instructions verbalized by patient. Follow-up with: [facility], , , [address], , [place], [id number] Follow up in seven days for suture removal. Call for an appointment. Follow-up with: [facility], Certified Mental Health Paramedical Aide, , , , , Follow up today. Call for the next available appointment. ADDITIONAL INFORMATION Depression Depression is one of the most common mental health problems today. It is not just a state of unhappiness or sadness. It is a true disease. The cause seems to be related to a decrease in chemicals that transmit signals in the brain. Having a family history of depression, alcoholism or suicide increases the risk. Chronic illness, chronic pain, migraine headaches and high emotional stress also increase the risk. Depression can cause many different symptoms, such as: -- Loss of appetite -- Over-eating -- Not being able to sleep -- Sleeping too much -- Tiredness not related to physical exertion -- Restlessness or irritability -- Slowness of movement or speech -- Feeling depressed or withdrawn -- Loss of interest in things you once enjoyed -- Difficulty in concentrating, poor memory, have trouble making decisions -- Thoughts of harming or killing oneself, or thoughts that life is not worth living -- Low self-esteem The best treatment for depression is a combination of medicine and psychotherapy. Antidepressant medicines can reduce suffering and can improve the ability to function during the depressed period. Therapy can offer emotional support and help you understand emotional factors that may be causing the depression. Home Care: 1) Be kind to yourself. Make it a point to do things that you enjoy (gardening, walking in nature, going to a movie, etc.). Reward yourself for small successes. 2) Take care of your physical body. Eat a balanced diet (low in saturated fat and high in fruits and vegetables). Establish an exercise plan at least 3 times a week for 30 minutes. Even mild-moderate exercise (like brisk walking) can make you feel better. 3) Avoid alcohol, which can make depression worse. Follow-Up with your doctor as advised. It is important to keep in contact with a health care provider until your symptoms begin to improve. Get Prompt Medical Attention if any of the following occur: -- Feeling extreme depression, fear, anxiety, or anger toward yourself or others -- Feeling out of control -- Feeling that you may try to harm yourself or another -- Hearing voices that others do not hear -- Seeing things that others do not see -- Cant sleep or eat for 3 days in a row Alcohol Intoxication Alcohol intoxication occurs when you drink alcohol faster than your liver can remove it from your system. Alcohol intoxication affects your judgment and coordination. Very high blood alcohol levels can cause coma, very slow breathing and even . If you drink alcohol every day, this may gradually cause permanent damage to your liver, brain, heart, pancreas and other organs. Alcohol use during may cause permanent damage to the growing baby. Home Care: Do not drink any more alcohol. DO NOT DRIVE until all effects of the alcohol have worn off. Get lots of rest over the next few days. Drink plenty of water and other non-alcoholic liquids. Try to eat regular meals. If you have been drinking heavily on a daily basis, you may go through alcohol withdrawl. This is also called the shakes or DTs. The usual symptoms last 3 to 4 days and may include nervousness, shakiness, nausea, sweating or sleeplessness. During this time, it is best that you stay with family or friends who can help and support you. You can also admit yourself to a residential detox program. If your symptoms are severe, contact your doctor for medicines to help. Follow Up: If alcohol is causing a problem in your life, these and other organizations can help you: Alcoholics Anonymous offers support through a self-help fellowship. There are no dues or fees. See the Yellow Pages and call for time and place of meetings. www.aa.org [employer] offers support to families of alcohol users. 940.423.1178 www.al-anon.org [employer] [place] [employer] [place] [employer] Alcoholism And Drug Dependence 966-294-3431 www.ncadd.org There are also inpatient or residential alcohol detox programs. Check the Internet or phonebook Yellow Pages under Drug Abuse & Treatment Centers. Get Prompt Medical Attention if any of the following occur: there) Amoxicillin Trihydrate, Clavulanate Potassium Oral tablet What is this medicine? AMOXICILLIN; CLAVULANIC ACID (a mox i EDITH in; LUZ gaines ic id) is a penicillin antibiotic. It is used to treat certain kinds of bacterial infections. It will not work for colds, flu, or other viral infections. How should I use this medicine? Take this medicine by mouth with a full glass of water. Follow the directions on the prescription label. Take at the start of a meal. Do not crush or chew. If the tablet has a score line, you may cut it in half at the score line for easier swallowing. Take your medicine at regular intervals. Do not take your medicine more often than directed. Take all of your medicine as directed even if you think you are better. Do not skip doses or stop your medicine early. Talk to your counseling aide regarding the use of this medicine in children. Special care may be needed. What side effects may I notice from receiving this medicine? Side effects that you should report to your doctor or health health care coordinator as soon as possible: allergic reactions like skin rash, itching or hives, swelling of the face, lips, or tongue breathing problems dark urine fever or chills, sore throat redness, blistering, peeling or loosening of the skin, including inside the mouth seizures trouble passing urine or change in the amount of urine unusual bleeding, bruising unusually weak or tired white patches or sores in the mouth or throat Side effects that usually do not require medical attention (report to your doctor or health health care coordinator if they continue or are bothersome): diarrhea dizziness headache nausea, vomiting stomach upset vaginal or anal irritation What may interact with this medicine? allopurinol anticoagulants control pills methotrexate probenecid What if I miss a dose? If you miss a dose, take it as soon as you can. If it is almost time for your next dose, take only that dose. Do not take double or extra doses. Where should I keep my medicine? Keep out of the reach of children. Store at room temperature below 25 degrees C (77 degrees F). Keep container tightly closed. Throw away any unused medicine after the expiration date. What should I tell my health care provider before I take this medicine? They need to know if you have any of these conditions: bowel disease, like colitis kidney disease liver disease mononucleosis an unusual or allergic reaction to amoxicillin, penicillin, cephalosporin, other antibiotics, clavulanic acid, other medicines, foods, dyes, or preservatives or trying to get breast-feeding What should I watch for while using this medicine? Tell your doctor or health health care coordinator if your symptoms do not improve. Do not treat diarrhea with over the counter products. Contact your doctor if you have diarrhea that lasts more than 2 days or if it is severe and watery. If you have diabetes, you may get a false-positive result for sugar in your urine. Check with your doctor or health health care coordinator. control pills may not work properly while you are taking this medicine. Talk to your doctor about using an extra method of control. You have been given the following additional information: Depression Alcohol Intoxication Amoxicillin Trihydrate, Clavulanate Potassium Oral tablet Stay with responsible adult family member (or other responsible adult). (Electronically signed by Chuy Gupta MD 01/03/2017 9:28)
--- NOTE | 2017-01-03 13:32 | ED MED RECONCILIATION SUMMARY ---
Patient: SHARYN CAO Medication Reconciliation Report [facility] VisitID: [id number] [address] [place] [address] 26y, M Registration Date/Time: 01/02/2017 Weight: 68.0 kg Height/Length: 70 in. BMI: 21.5 ALLERGIES: Demerol The patient's Home Medications are listed below: THE FOLLOWING MEDICATIONS NEED TO BE RECONCILED: Abilify Oral (5 mg) 1 tablet, daily Adderall Oral ARIPiprazole Oral (5 mg) 1 tablet, daily BuPROPion HCl Oral (100 mg) 2 tablets, daily TraZODone HCl Oral (50 mg) 1 tablet, at bedtime Trazosine 1mg, daily The source(s) of the original Home Medication information: Not obtained. The following Medications were given to the patient in the Emergency Department: LIDOCAINE BUFFERED [INJECTION] Injection 2 %, administered: 01/03/2017 1:13:00 AM The following Medications were prescribed to the patient: Augmentin 875 mg: take 1 tablet orally every 12 hours for 7 days. Dispense fourteen (14). No refills. Substitution is permissible. -- Chuy Gupta MD
== END 2017-01-03 09:23 | disposition home or self-care (01) ==
LOC: ED SRH 21:20
DX: F32.9 Major depressive disorder, single episode, unspecified (principal); F10.229 Alcohol dependence with intoxication, unspecified; S01.312A Laceration without foreign body of left ear, initial encounter; W19.XXXA Unspecified fall, initial encounter; Y93.9 Activity, unspecified; Y92.89 Other specified places as the place of occurrence of the external cause; Y99.9 Unspecified external cause status; Z79.899 Other long term (current) drug therapy; F17.210 Nicotine dependence, cigarettes, uncomplicated; Z88.5 Allergy status to narcotic agent
CPT/HCPCS: 90004; 90074; 90100; 92010; 92760; 92761; 92762; 92763; 92764; 92765; 92766; 92767; 92780; 95059; 97000